=== PATIENT | male | born 1945 | race Caucasian/White ===

== ENCOUNTER 2024-01-17 16:23 | Inpatient (IN) | payer MEDICARE, OTHER, SELFPAY ==
[2024-01-17] VITALS (10 sets, daily range): BP systolic 84–130; BP diastolic 41–61; PULSE 55–79; BMI 30.3
--- NOTE | 2024-01-17 14:39 | ED.GENMED ---
History of Present Illness
General
Chief Complaint: Anal/Rectal Problem
Time Seen by Provider: 01/17/24 14:30
History of Present Illness
History of Present Illness:
Patient is a 78-year-old male with history of hypertension presenting to the emergency department with dark stools. Patient states that yesterday he was in his usual state of health. Had normal p.o. and no abdominal pain. He states that in the
evening around 7 PM he started to begin feeling unwell and dizzy. He laid down and when he stood up as his symptoms worsen. He then had his blood pressure checked and it was low in the 90s over 50s. He drank some orange juice had some more food
and rechecked it and the blood pressure was normal. He still did not feel well so he went to sleep. This morning he woke up and he had 3 episodes of black stools. this is never happened to him before. No abdominal pain travel antibiotics or
changes in his diet. Denies any history of reflux peptic ulcer disease. He is not on an aspirin and does not take any NSAIDs. He called his primary care doctor who advised him to come to the emergency department for further evaluation. He does
state that his blood pressure is better however he still feels slightly lightheaded and dizzy today.
He has never had an endoscopy but had a colonoscopy completed 2 years ago where a polyp was removed. He was due for another repeat colonoscopy 5 years later.
Past History
Past History
ED Past Medical History: HTN
ED Past Surgical History: Urological
Social History
Tobacco: Former smoker
Alcohol: Daily
Drug: None
Phy Exam
Physical Exam
Physical Exam:
GENERAL: in no acute distress
HEENT: normocephalic, extraocular movements intact, moist oral mucosa
NECK: normal inspection
RESPIRATORY: no respiratory distress, clear to auscultation bilaterally
CARDIOVASCULAR: regular rate and rhythm
ABDOMEN/: soft, non-distended, non-tender to palpation, no rebound or guarding
EXTREMITIES: non-tender, no edema/swelling
NEUROLOGIC: awake and alert, moves all extremities
SKIN: warm
Course
Orders/Labs/Results
Orders:
Orders
01/17/24 14:39
Orthostatic VS- Treatment ONCE
01/17/24 14:43
Pantoprazole [Protonix IV] 40 mg IV NOW STA
Pantoprazole [Protonix IV] 80 mg IV NOW STA
01/17/24 14:58
0.9% Sodium Chloride 1000 ml [Nss] 1,000 ml IV BOLUS
01/17/24 15:03
Type+Screen Urgent
Complete Blood Count/With Diff Urgent
Comprehensive Metabolic Panel Urgent
01/17/24 15:16
ABO2 Urgent
BBK Wristband Number:
Associate notified that ABO2 has been ordered: [id number]
Date: 01/17/24
Time: 15:17
Dry Cleaning Supervisor ID: [id number]
Abnormal Lab Results
01/17/24
15:03
RBC 3.62 L 10^6/uL
(4.70-6.10)
Hgb 11.2 L g/dL
(13.0-18.0)
Hct 30.0 L %
(39.0-52.0)
MCHC 37.3 H g/dL
(33.0-37.0)
MPV 11.1 H fL
(7.4-10.4)
BUN 67 H mg/dl
(9-20)
Glucose 104 H mg/dl
(70-99)
Alkaline Phosphatase 36 L U/L
(38-126)
01/17/24 15:03
01/17/24 15:03
Vital Signs
Initial and Last Documented VS:
Initial Vital Signs
Temp Pulse Resp BP Pulse Ox
98.6 F 76 18 115/61 99
01/17/24 14:11 01/17/24 14:11 01/17/24 14:11 01/17/24 14:11 01/17/24 14:11
Last Documented Vital Signs
Temp Pulse Resp BP Pulse Ox
98.6 F 76 18 115/61 99
01/17/24 14:11 01/17/24 14:11 01/17/24 14:11 01/17/24 14:11 01/17/24 14:11
MDM/Problems Addressed
Differential Diagnosis Includes:
Patient is a 78-year-old male with history of hypertension presenting to the emergency department with low blood pressure yesterday as well as black stools. Vitals here notable for blood pressure 115/61 and exam does show a benign abdomen.
Differential considered likely upper GI bleed either from peptic ulcer disease versus gastritis versus AVM. History and exam not consistent with variceal bleed or Boerhaave's. Will obtain blood work to evaluate hemoglobin as well as BUN. Will
complete orthostatic vital signs. Will give Protonix.
*Critical Care Note
Total Time (30-74mins, 75-104mins- exclusive of procedures): Not Applicable
Update Note
Update Note:
Orthostatics are positive. Will give a bolus of fluids.
Blood work is notable for hemoglobin of 11 with a baseline of 14-15 that was many years ago. BUN is elevated. Given the lightheadedness dizziness and ongoing dark tarry stools patient will benefit from admission. Discussed with hospitalist who
accepted patient to their service.
ED Attending Note
-
Portions of this chart may have been created with voice recognition software.� Occasional wrong word or��sound alike� substitutions may have occurred due to the inherent limitations of voice recognition software.
Discharge Plan
Departure
Patient Disposition: Admit
Date of Disposition: 01/17/24
Time of Disposition: 15:43
Presentation/result/management discussed w/ accepting MD/DO: Hospitalist
Discharge Problem:
Acute upper GI bleed
Prescriptions:
No Action
ropinirole 0.5 mg Tablet
0.5 mg PO HSPRN PRN (Reason: rls)
olmesartan-hydrochlorothiazide 40-12.5 mg Tablet
1 tab PO DAILY
Referrals:
Shahbaz Vazquez DO [Family Provider] -
Interventions
Interventions:
*Risk Screen - Suicide Last Done: 01/17/24 14:11
*General Assessment Last Done: 01/17/24 14:53
*Neglect/Abuse Screening Last Done: 01/17/24 14:11
*ED COVID-19 Vaccine History Last Done: 01/17/24 14:53
Discharge Date and Time
Print Language: ECUADOREAN
[2024-01-17] MEDS: PROTONIX IV 80 MG IV (15:10)
[2024-01-17] MEDS: NSS 1000 IV (15:11)
[2024-01-17 15:18] LABS: % Basophils 0.5 % (0-2); % Eosinophils 0.6 % (0-6); % Immature Granulocytes 0.2 % (0-0.5); % Lymphocytes 35.7 % (20.5-51.1); Absolute Lymphocytes 2.3 10^3/uL (1.2-3.4); Absolute Monocytes 0.4 10^3/uL (0.1-0.6); Absolute Neutrophils 3.7 10^3/uL (1.4-6.5); Hemoglobin 11.2 g/dL (13.0-18.0); Mean Corp Hgb Conc. 37.3 g/dL (33.0-37.0); Mean Corpuscular Hgb 30.9 pg (27.0-31.0); Mean Corpuscular Volume 82.9 fL (80.0-94.0); Mean Platelet Volume 11.1 fL (7.4-10.4); Nucleated Red Blood Cells % 0 % (-); Platelet Count 146 10^3/uL (130-400); Red Blood Cell Count 3.62 10^6/uL (4.70-6.10); Red Cell Dist. Width 12.9 % (11.5-14.5); White Blood Cell Count 6.5 10^3/uL (4.8-10.8)
[2024-01-17 15:33] LABS: ALT (SGPT) 19 U/L (0-50); AST (SGOT) 23 U/L (17-59); Albumin 4.2 g/dl (3.5-5.0); Alkaline Phosphatase 36 U/L (38-126); Blood Urea Nitrogen 67 mg/dl (9-20); Calcium 9.1 mg/dl (8.4-10.2); Carbon Dioxide 22 mmol/L (22-30); Chloride 107 mmol/L (98-107); Estimated Creatinine Clearance 77 ml/min; Glucose 104 mg/dl (70-99); Potassium 4.1 mmol/L (3.5-5.1); Sodium 139 mmol/L (135-145); Total Bilirubin 0.6 mg/dl (0.2-1.3); Total Protein 6.7 g/dl (6.3-8.2); eGFR > 60.00
--- NOTE | 2024-01-17 16:13 | HPS.HSE ---
Family Physician
-
Family Physician: Shahbaz Vazquez, DO
Chief Complaint
-
rectal bleeding
History of Present Illness
78-year-old male past medical history of hypertension, restless leg syndrome presenting with dark stools. He was in his normal state of health yesterday. In the evening around 7 PM yesterday began to feel unwell and dizzy. He laid down and when
he stood up his symptoms were worse. He has blood pressure checked and it was 90s over 50s. Some orange juice and had food and rechecked and blood pressure was normal. He went back to sleep. This morning he woke up and he had 3 episodes of black
stools. Denies any prior history of GI bleeding. He denies abdominal pain, history of acid reflux or peptic ulcer disease. Denies any aspirin use or taking any NSAIDs on a regular basis. He called his primary care physician who advised that he
come to the emergency room. He continues to feel lightheaded and dizzy.
He has never had an endoscopy before. He had colonoscopy 2 years ago and a polyp was removed.
He denies any family history of GI problems.
He drinks 3 drinks of alcohol per day. He denies smoking.
Medical History
Past Medical History
Past Medical History: Reports Other (hypertension, restless leg syndrome )
Past Surgical History: Reports None
Social History
Tobacco: Non-smoker
Alcohol: Daily
Drug: None
Family History
Family History: Not pertinent
Allergies / Home Medications
Allergies reflects when Allergies were last updated in [facility].
Home Medications with original date entered in [facility]
Allergy/Medication List:
Allergies
Allergy/AdvReac Type Severity Reaction Status Date / Time
seasonal pollen Allergy sneezing Uncoded 01/17/24 14:11
and watery
eyes
Home Medications
olmesartan 40 mg-hydrochlorothiazide 12.5 mg tablet 1 tab PO DAILY 01/17/24
ropinirole 0.5 mg tablet 0.5 mg PO HSPRN PRN rls 01/17/24
Review of Systems
-
History Source: Patient
A 12 point ROS was completed and negative except as noted: Yes
Constitutional: Reports No Symptoms
EENT: Reports No Symptoms
Respiratory: Reports No Symptoms
Cardiac: Reports No Symptoms
Abdomen/GI: Reports See HPI
: Reports No Symptoms
Musculoskeletal: Reports No Symptoms
Skin: Reports No Symptoms
Neurological: Reports No Symptoms
Endocrine: Reports No Symptoms
Hematologic/Lymphatic: Reports No Symptoms
Psych: Reports No Symptoms
Physical Exam
Vital Signs
Vital Signs
Temp Pulse Resp BP Pulse Ox
98.6 F 52 10 122/57 98
01/17/24 14:11 01/17/24 15:15 01/17/24 15:45 01/17/24 15:00 01/17/24 15:45
Physical Exam
General: Well Developed, Well Nourished and No Apparent Distress
HEENT: NormoCephalic, Moist mucous membranes and Atraumatic
Respiratory: Clear
Cardiac: S1/S2 and Regular Rhythm; No Murmur or Rub
GI: Soft, Non Tender, Non Distended and Normal Bowel Sounds; No Organomegaly
Rectal: Deferred by Provider
Musculoskeletal: No Clubbing, No Cyanosis and No Edema
Skin: No Rash
Neuro: Nonfocal/grossly intact
Laboratory Results
-
01/17/24 15:03
01/17/24 15:03
Laboratory Results
Total Bilirubin 0.6 mg/dl (0.2-1.3) 01/17/24 15:03
AST 23 U/L (17-59) 01/17/24 15:03
ALT 19 U/L (0-50) 01/17/24 15:03
Alkaline Phosphatase 36 U/L (38-126) L 01/17/24 15:03
Data Reviewed
-
Lab Data: Labs Reviewed by me
Old Records: Reviewed
Impression/Plan
-
IMPRESSION:
PLAN:
# Upper GI bleeding
-Hemoglobin 11.2
-Type and screen
-Clear liquid diet, n.p.o. past midnight
-Protonix 40 twice daily
-Check iron studies, B12 and folate
-GI consulted
Essential hypertension
-Hold olmesartan/hydrochlorothiazide
Restless leg syndrome
-Continue ropinirole
Daily alcohol use
-monitor for withdrawal
Full code
DVT prophylaxis SCDs
N.p.o. postmidnight
--- NOTE | 2024-01-17 18:31 | CON.GI ---
Consultation
-
Date/Time Consultation Requested: 01/17/2024, 1400
Date/Time Consultation Performed: 01/17/2024, 1830
Requesting Provider: Ady Raymond MD
Performing Provider: Dr. Pastor Barros
Reason for Consultation: UGIB
Medical History
Chief Complaint / HPI
Chief Complaint: Rectal bleeding
History of Present Illness:
Mr. Angeles is a 78 y.o male with past medical history of HTN and RLS who presented to the ED with dark stools.
Patient states he was in USOH until yesterday when he developed dizziness around 7 PM last evening. Noticed his BP was low 90/50s and tried drinking orange juice. The next morning we subsequently developed three episodes of dark black liquid stools.
No blood clots or BRBPR. Denies any prior hx of GI bleeding in the past. No blood thinners, antiplatelets or ASA. Does note prior NSAIDs about a week ago but only one or two tablets one time, no significant NSAID use. Denies any unintentional weight
loss. No other nausea/vomiting, reflux/heartburn, dysphagia/odynophagia, dyspepsia or epigastric pain. No other significant EtOH use. Called his PCP who advised him to come to the ED given his dark stools and lightheadedness.
Prior Endoscopic Hx:
Colonoscopy (high risk CRC surveillance, hx of colon polyps) 04/28/2022- Impression: Diverticulosis in simgoid colon. One 1 mm polyp in the recto-sigmoid colon, removed via cold biopsy forceps. Examination was otherwise normal.
No prior EGD
In the ED, patient was afebrile and HD-stable. Labs notable for BUN 67 and Equipment Maint Tech 1.0. LFTs wnl. CBC with Hgb 11.2 (previously baseline 14-15s) and plts 146. Patient was admitted to medicine for further management and started on IV PPI 40 mg BiD. GI
has been consulted for further evaluation and management due to concern for UGIB.
Past Medical History
Past Medical History: Other (hypertension, restless leg syndrome)
Past Surgical History: None
Social History
Tobacco: Non-Smoker
Alcohol: Occasional
Drug: None
Family History
Family History: Reviewed & Not Pertinent
Allergies / Home Medications
Allergy/AdvReac Type Severity Reaction Status Date / Time
pollen extracts Allergy sneezing Verified 01/17/24 18:09
and watery
eyes
�Medication �Instructions �Recorded
olmesartan 40 1 tab PO DAILY 01/17/24
mg-hydrochlorothiazide 12.5 mg
tablet
ropinirole 0.5 mg tablet 0.5 mg PO HSPRN PRN rls 01/17/24
Review of Systems
-
All other systems: A 12 pt ROS was Negative except as stated above in HPI
Vital Signs
Temp Pulse Resp BP Pulse Ox
98.6 F 52 14 126/58 100
01/17/24 14:11 01/17/24 18:00 01/17/24 18:00 01/17/24 17:00 01/17/24 17:45
Physical Exam
Exam
General: Well Developed, Well Nourished and Comfortable
HEENT: Normocephalic and Anicteric
Respiratory: Clear and Non Labored Respirations
Cardiac: S1/S2
GI: Soft, Non Tender and Non Distended
Skin: Warm
Neuro: AO x 3
Psych: Calm
Results
WBC 6.5 10^3/uL (4.8-10.8) 01/17/24 15:03
Hgb 11.2 g/dL (13.0-18.0) L 01/17/24 15:03
Hct 30.0 % (39.0-52.0) L 01/17/24 15:03
MCV 82.9 fL (80.0-94.0) 01/17/24 15:03
Plt Count 146 10^3/uL (130-400) 01/17/24 15:03
Absolute Neuts (auto) 3.7 10^3/uL (1.4-6.5) 01/17/24 15:
Sodium 139 mmol/L (135-145) 01/17/24 15:
Potassium 4.1 mmol/L (3.5-5.1) 01/17/24 15:
Chloride 107 mmol/L (98-107) 01/17/24:
Carbon Dioxide 22 mmol/L (22-30) 01/17/24 15:
BUN 67 mg/dl (9-20) H 01/17/24 15:
Creatinine 1.0 mg/dL (0.7-1.3) 01/17/24:
Calcium 9.1 mg/dl (8.4-10.2) 01/17/24 15:
Total Bilirubin 0.6 mg/dl (0.2-1.3) 01/17/24:
AST 23 U/L (17-59) 01/17/24 15:
ALT 19 U/L (0-50) 01/17/24 15:
Alkaline Phosphatase 36 U/L (38-126) L 01/17/24 15:
Diagnostic Image Results: As above
Assessment / Plan
-
#Melena #UGIB
#Acute Blood Loss Anemia
#Symptomatic Anemia
Assessment: Mr. Angeles is a pleasant 78 y.o male with past medical history of HTN and RLS who presented to the ED with melena and symptomatic anemia found to have orthostatic hypotension and Hgb 11s (from 14-15s). BUN 67 with nml Equipment Maint Tech 1.0.
Etiology concerning for non-variceal UGIB secondary to PUD vs Dieulafoy's lesion vs gastroduodenal erosions versus malignancy. No concern for LGIB. Although orthostatic, he is HD-stable without any further episodes of melena since admission. Would
benefit from EGD for further evaluation.
Recommendations:
- Okay for CLD, keep NPO at MN
- IV PPI 40 mg BiD
- Trend Hgb with serial CBC, transfuse for goal Hgb > 7.0
- Check INR with AM labs
- Plan for EGD tomorrow, 01/18/24, for further evaluation of melena
- Avoid all anti-hypertensive and anticoagulants
- Rest of care per primary team
GI will continue to follow.
Data Reviewed
-
Old Records: Reviewed
-
-
Thank you for consultation and allowing me to participate in the patient's care. Please call the divisional storekeeper GI physician during the after hours with any questions or concerns.
[2024-01-17] MEDS: NSS (PRESERVATIVE FREE) 10 ML IV (19:43)
[2024-01-17] MEDS: PROTONIX IV 40 MG IV (19:43)
[2024-01-17 20:19] LABS: Iron 166 ug/dl (49-181)
[2024-01-17 20:28] LABS: Percent Saturation 66 % (20-50); Total Iron Binding Capacity 249 ug/dl (261-462)
[2024-01-17 21:19] LABS: Vitamin B12 393 pg/ml (239-931)
[2024-01-18] VITALS (9 sets, daily range): BP systolic 11–127; BP diastolic 45–55
[2024-01-18] MEDS: PROTONIX IV 40 MG IV (08:07)
[2024-01-18] MEDS: NSS (PRESERVATIVE FREE) 10 ML IV (08:08)
[2024-01-18 08:38] LABS: INR 1.19; PT 14.9 Sec (11.4-14.6)
[2024-01-18 08:57] LABS: % Basophils 0.8 % (0-2); % Eosinophils 3.8 % (0-6); % Immature Granulocytes 0.2 % (0-0.5); % Lymphocytes 49.6 % (20.5-51.1); % Monocytes 8.3 % (1.7-9.3); % Neutrophils 37.3 % (42.2-75.2); Absolute Eosinophils 0.2 10^3/uL (0-0.7); Absolute Lymphocytes 2.4 10^3/uL (1.2-3.4); Absolute Monocytes 0.4 10^3/uL (0.1-0.6); Absolute Neutrophils 1.8 10^3/uL (1.4-6.5); Hematocrit 28.8 % (39.0-52.0); Hemoglobin 10.3 g/dL (13.0-18.0); Mean Corp Hgb Conc. 35.8 g/dL (33.0-37.0); Mean Corpuscular Hgb 31.6 pg (27.0-31.0); Mean Corpuscular Volume 88.3 fL (80.0-94.0); Mean Platelet Volume 11.6 fL (7.4-10.4); Nucleated Red Blood Cells % 0 % (-); Platelet Count 128 10^3/uL (130-400); Red Blood Cell Count 3.26 10^6/uL (4.70-6.10); White Blood Cell Count 4.8 10^3/uL (4.8-10.8)
[2024-01-18 09:09] LABS: ALT (SGPT) 18 U/L (0-50); AST (SGOT) 22 U/L (17-59); Albumin 3.5 g/dl (3.5-5.0); Alkaline Phosphatase 30 U/L (38-126); Blood Urea Nitrogen 41 mg/dl (9-20); Calcium 8.5 mg/dl (8.4-10.2); Carbon Dioxide 25 mmol/L (22-30); Chloride 107 mmol/L (98-107); Estimated Creatinine Clearance 77 ml/min; Glucose 92 mg/dl (70-99); Potassium 4.3 mmol/L (3.5-5.1); Sodium 141 mmol/L (135-145); Total Bilirubin 0.6 mg/dl (0.2-1.3); Total Protein 5.9 g/dl (6.3-8.2); eGFR > 60.00
--- NOTE | 2024-01-18 11:48 | W.PN.HOSP.TC ---
Addendum entered and electronically signed by Qamar Pereyra MD 01/18/24 14:46:
Upper GI bleed with acute blood loss anemia, did not require blood transfusion, secondary to PUD which was likely alcohol induced.
-BID IV PPI to BID PO 40mg PPI [id number] per GI
-Repeat Egd in 8weeks
-Avoid NSAID's and citric acid contianing foods, alcohol
-GI follow up for Bx review
-Asymptomatic now, previously dizzy this AM
-Repeat CBC with PCP in 3days
-Transfuse if hgb <7
-If able to tolerate diet and is DC'ed today, return precautions provided at bedside
Alcohol use disorder
-Thiamine and folate
-Avoid/abstain from alcohol use
-Without evidence of withdrawl
More than 30 minutes spent in discharge including
Final examination of the patient
Summarizing hospital stay
Instructions for continuing care to all relevant caregivers
Preparation of discharge records, prescriptions, and referral forms
Total time spent (in minutes): 35mins
Original Note:
Today's Communication/Plan
-
* Continue IV pantoprazole.
* Resume diet.
* Anticipated discharge today.
Assessment / Plan
Assessment / Plan
Assessment
Mohinder Angeles, age 78, felt dizzy and weak 2 days ago in the evening and woke up with 3 episodes of black stools on 01-17-24. Came to the hospital and admitted for presumed upper GI bleeding.
Impression and plan
Acute upper gastrointestinal bleeding
Duodenal and esophageal ulcer
Chronic gastritis, possibly associated with alcohol use
Melena
- Possibly related to daily alcohol use (3+ drinks).
- Continue IV pantoprazole BID.
- Endoscopy shows esophageal and duodenal ulcers; no active foci of bleeding.
- Erythematous mucus from stomach biopsied.
- Resume diet.
- Repeat CBC stable; patient asymptomatic.
Acute blood loss anemia
- Likely from the GI bleed.
- Follow CBC.
- Transfuse for <7 hemoglobin.
Essential hypertension
- Hold olmesartan-hydrochlorothiazide
Restless leg syndrome
- Continue ropinirole.
Heavy alcohol use
- Monitor; not withdrawing.
- Strongly emphasized abstaining for now.
Thromboprophylaxis
- SCD.
Code status
- Full.
Anticipated Discharge: 24 - 48 hours
Subjective/Interval History
-
Date of Service: January 18, 2024
Stable overnight. Has been NPO and has not had a bowel movement since admitted. No pain.
Objective Data
-
Labs:
Laboratory Results
01/18/24
06:44
WBC 4.8
Hgb 10.3 L
Hct 28.8 L
Plt Count 128 L
PT 14.9 H
INR 1.19
Sodium 141
Potassium 4.3
Chloride 107
Carbon Dioxide 25
BUN 41 H
Creatinine 1.0
Glucose 92
Calcium 8.5
Total Bilirubin 0.6
AST 22
ALT 18
Alkaline Phosphatase 30 L
Vital Signs:
Vital Signs
Temp Pulse Resp BP Pulse Ox
97.9 F 61 14 123/52 98
01/18/24 11:30 01/18/24 11:30 01/18/24 11:30 01/18/24 11:30 01/18/24 11:30
I&O
01/17/24 01/18/24 01/19/24
06:59 06:59 06:59
Intake Total 480 / 480
Balance 480 / 480
Review of Systems
-
History Source: Patient
Constitutional: Reports No Symptoms
EENT: Reports No Symptoms Reported
Respiratory: Reports No Symptoms
Cardiac: Reports No Symptoms
Abdomen/GI: Reports Black Stools
Genitourinary: Reports No Symptoms
Musculoskeletal: Reports No Symptoms
Skin: Reports No Symptoms
Neuro: Reports No Symptoms
Endocrine: Reports No Symptoms
Allergy / Immunology: Reports No Symptoms
Physical Exam
-
General: No Apparent Distress and Comfortable
HEENT: Normocephalic, Atraumatic, Moist Mucous Membranes, Anicteric and No Ptosis
Respiratory: Clear to Auscultation and Non Labored Respirations
Cardiac: Regular Rhythm and S1/S2
GI: Soft, Nontender, Nondistended, Normal Bowel Sounds and No Hepatosplenomegaly
Genito-urinary: No Costovertebral Tender
Musculoskeletal: No Clubbing, No Cyanosis and No Edema
Skin: Warm, Dry and IV Access / Catheter Site
Neuro: Awake, Alert, Oriented and No Motor Deficits
Hematologic / Lymphatic: No Lymphadenopathy
Psych: Calm
--- NOTE | 2024-01-18 12:23 | CM ---
Pt seen bedside. Pt lives w/ spouse in a [facility]- 2/3 steps to enter
Independent, no DME use for daily functioning
Denies SNF hx
Denies VN/PT hx
Denies financial insecurities
Address, point of contact and insurances verified
PCP: Dr. Shahbaz Vazquez
Pharmacy: [facility] [place]
Pt states he drove himself here and will drive home at d/c
Plan: Home no needs anticipated
--- NOTE | 2024-01-18 13:36 | W.DCSUMMARY ---
Discharge Summary
Discharge Data
Date of Admission: 01/17/24
Date of Discharge: 01/18/24
-
Pending Results: Yes (gastric biopsy results)
Hospital Course
Primary discharge diagnoses
* Acute upper gastrointestinal bleeding
* Acute blood loss anemia
Secondary discharge diagnoses
- Duodenal and esophageal ulcer
- Chronic gastritis, possibly associated with alcohol use
- Gastroesophageal reflux disease
- Gastric diverticulum
- Essential hypertension
- Restless leg syndrome
- Heavy alcohol use
Hospital course
Mohinder Angeles, age 78, had 3 episodes of black stools on 01-17-24 and came to the hospital. Blood work was notable for a low hemoglobin (compared to 2019) and elevated blood urea nitrogen; he was started on treatment for suspected acute upper
gastrointestinal bleeding. He was given intravenous pantoprazole twice a day and underwent an upper gastrointestinal endoscopy on 01-18-24. The endoscopy showed esophageal and duodenal ulcerations, as well as erythematous gastric mucosa which was
biopsied for further evaluation. No active bleeding or oozing spots were identified. Patient remained asymptomatic and hemodynamically stable with normal vital signs throughout his admission. He tolerated food well after the endoscopy, and has not
had any gastrointestinal symptoms during the admission. He was evaluated by gastroenterology, who recommended outpatient follow-up and a repeat endoscopy in about 8 weeks to re-evaluate ulcers. He will be discharged home on 8 weeks of pantoprazole
40 mg twice a day, then once daily. Strongly recommended to abstain from alcohol and/or nonsteroidal anti-inflammatory drugs use. Please consult primary before taking any other/new medications/supplements. Follow-up with primary within 1 week and
gastroenterology in 2-3 weeks. Please check blood work in 3 days; physical script provided.
Discharge Plan
-
Patient Disposition: Home (Routine Discharge)
Discharge Diagnosis/Procedures: Acute upper gastrointestinal bleeding
Duodenal and esophageal ulcer
Chronic gastritis, possibly associated with alcohol use
Condition: Good
Diet: Regular
Activity: No restrictions
Driving Restrictions: As prior to admission
Bathing Restrictions: None
Blood Work: CBC and BMP in 3 days.
Others Tests: Repeat endoscopy in 8 weeks.
Instructions: Gastrointestinal Bleeding (DC)
Referrals:
Shahbaz Vazquez DO [Family Provider] - in less than 1 week
Pastor Barros DO [Active] - in two to three weeks
Prescriptions:
New
pantoprazole 40 mg tablet,delayed release (DR/EC)
40 mg PO DAILY 56 Days Qty: 56 2RF
Continued
ropinirole 0.5 mg Tablet
0.5 mg PO HSPRN PRN (Reason: rls)
olmesartan-hydrochlorothiazide 40-12.5 mg Tablet
1 tab PO DAILY
Discharge Date and Time
Print Language: [place]OOK ISLAND[place]
== END 2024-01-18 16:28 | disposition home or self-care (01) | DRG 378 ==
LOC: 4 WEST ACU 16:23
PROVIDERS: Student in an Organized Health Care Education/Training Program; ADMITTING PHYSICIAN Hospitalist; ATTENDING PHYSICIAN Hospitalist; CONSULT PHYSICIAN Student in an Organized Health Care Education/Training Program; EMERGENCY PHYSICIAN Student in an Organized Health Care Education/Training Program; FAMILY PHYSICIAN Family Medicine
PROC: 0DB38ZX Excision of Lower Esophagus, Via Natural or Artificial Opening Endoscopic, Diagnostic (ICD-10-PCS; 2024-01-18)
PROC: 0DB48ZX Excision of Esophagogastric Junction, Via Natural or Artificial Opening Endoscopic, Diagnostic (ICD-10-PCS; 2024-01-18)
PROC: 0DB78ZX Excision of Stomach, Pylorus, Via Natural or Artificial Opening Endoscopic, Diagnostic (ICD-10-PCS; 2024-01-18)
DX: K26.4 Chronic or unspecified duodenal ulcer with hemorrhage (principal); D62 Acute posthemorrhagic anemia; K22.10 Ulcer of esophagus without bleeding; G25.81 Restless legs syndrome; I10 Essential (primary) hypertension; K29.50 Unspecified chronic gastritis without bleeding; K21.9 Gastro-esophageal reflux disease without esophagitis; K31.4 Gastric diverticulum; K44.9 Diaphragmatic hernia without obstruction or gangrene; K31.89 Other diseases of stomach and duodenum; I95.1 Orthostatic hypotension; Z79.899 Other long term (current) drug therapy; Z86.0100 Personal history of colon polyps, unspecified; Z87.891 Personal history of nicotine dependence
CPT/HCPCS: 88305; 80053; 82607; 82728; 83540; 83550; 85025; 85610; 86850; 86900; 86901; 88342; 96361; 96374; 99285

== ENCOUNTER → 2024-01-21 09:27 | Outpatient (REF) | payer MEDICARE, OTHER, SELFPAY ==
[2024-01-21 10:32] LABS: % Basophils 0.7 % (0-2); % Eosinophils 3.5 % (0-6); % Lymphocytes 39.7 % (20.5-51.1); % Monocytes 7.9 % (1.7-9.3); % Neutrophils 48.2 % (42.2-75.2); Absolute Eosinophils 0.2 10^3/uL (0-0.7); Absolute Lymphocytes 1.8 10^3/uL (1.2-3.4); Absolute Monocytes 0.4 10^3/uL (0.1-0.6); Absolute Neutrophils 2.2 10^3/uL (1.4-6.5); Hematocrit 29.4 % (39.0-52.0); Hemoglobin 10.7 g/dL (13.0-18.0); Mean Corp Hgb Conc. 36.4 g/dL (33.0-37.0); Mean Corpuscular Hgb 32.2 pg (27.0-31.0); Mean Corpuscular Volume 88.6 fL (80.0-94.0); Mean Platelet Volume 11.5 fL (7.4-10.4); Nucleated Red Blood Cells % 0 % (-); Platelet Count 143 10^3/uL (130-400); Red Blood Cell Count 3.32 10^6/uL (4.70-6.10); Red Cell Dist. Width 12.9 % (11.5-14.5); White Blood Cell Count 4.5 10^3/uL (4.8-10.8)
[2024-01-21 11:07] LABS: Blood Urea Nitrogen 25 mg/dl (9-20); Calcium 8.6 mg/dl (8.4-10.2); Carbon Dioxide 25 mmol/L (22-30); Chloride 104 mmol/L (98-107); Glucose 104 mg/dl (70-99); Potassium 4.1 mmol/L (3.5-5.1); Sodium 138 mmol/L (135-145); eGFR > 60.00
== END ==
LOC: REG 09:27
PROVIDERS: ATTENDING PHYSICIAN Student in an Organized Health Care Education/Training Program; FAMILY PHYSICIAN Family Medicine; REFERRING PHYSICIAN Student in an Organized Health Care Education/Training Program
DX: K92.2 Gastrointestinal hemorrhage, unspecified (principal); D62 Acute posthemorrhagic anemia
CPT/HCPCS: 36415; 80048; 85025

== ENCOUNTER → 2024-03-23 11:41 | Outpatient (REF) | payer MEDICARE, OTHER, SELFPAY ==
[2024-03-23 12:34] LABS: % Basophils 0.8 % (0-2); % Immature Granulocytes 0.2 % (0-0.5); % Monocytes 9.6 % (1.7-9.3); % Neutrophils 51.4 % (42.2-75.2); Absolute Eosinophils 0.1 10^3/uL (0-0.7); Absolute Lymphocytes 1.7 10^3/uL (1.2-3.4); Absolute Monocytes 0.5 10^3/uL (0.1-0.6); Absolute Neutrophils 2.4 10^3/uL (1.4-6.5); Hematocrit 38.5 % (39.0-52.0); Hemoglobin 13.5 g/dL (13.0-18.0); Mean Corp Hgb Conc. 35.1 g/dL (33.0-37.0); Mean Corpuscular Hgb 30.7 pg (27.0-31.0); Mean Corpuscular Volume 87.5 fL (80.0-94.0); Mean Platelet Volume 10.8 fL (7.4-10.4); Nucleated Red Blood Cells % 0 % (-); Platelet Count 164 10^3/uL (130-400); Red Cell Dist. Width 11.8 % (11.5-14.5); White Blood Cell Count 4.7 10^3/uL (4.8-10.8)
[2024-03-23 13:12] LABS: Iron 104 ug/dl (49-181)
[2024-03-23 13:21] LABS: Percent Saturation 38 % (20-50); Total Iron Binding Capacity 270 ug/dl (261-462)
[2024-03-23 13:30] LABS: Vitamin D, 25-OH*** 45.4 ng/mL (30-80)
[2024-03-23 13:48] LABS: Ferritin 64.9 ng/ml (17.9-464.0)
== END ==
LOC: REG 11:41
PROVIDERS: ATTENDING PHYSICIAN Physician Assistant; FAMILY PHYSICIAN Family Medicine; REFERRING PHYSICIAN Student in an Organized Health Care Education/Training Program
DX: D62 Acute posthemorrhagic anemia (principal); E55.9 Vitamin D deficiency, unspecified
CPT/HCPCS: 36415; 82306; 82728; 83540; 83550; 85025

== ENCOUNTER 2024-04-06 06:18 | Day surgery (SDC) | payer MEDICARE, OTHER, SELFPAY | END 2024-04-06 10:49 | disposition home or self-care (01) | LOC: GI 06:18 | PROVIDERS: ATTENDING PHYSICIAN Student in an Organized Health Care Education/Training Program; FAMILY PHYSICIAN Family Medicine | DX: K22.89 Other specified disease of esophagus (principal); K31.4 Gastric diverticulum; K26.9 Duodenal ulcer, unspecified as acute or chronic, without hemorrhage or perforation; K22.70 Barrett's esophagus without dysplasia | CPT/HCPCS: 43239; 88305 ==

== ENCOUNTER 2024-07-22 12:07 | Emergency (ER) | payer MEDICARE, OTHER, SELFPAY ==
[2024-07-22 12:13] VITALS: BP 160/78
--- NOTE | 2024-07-22 13:00 | ED.SKININJ ---
HPI-Injury
General
Chief Complaint: Bite
Source: patient
Exam Limitations: none
Time Seen by Provider: 07/22/24 12:39
Nursing documentation reviewed up to this point in time: agreed with
History of Present Illness-Injury
Initial Injury comments:
78-year-old male with history as noted presents for evaluation after dog bite. Patient was walking outside today and passed by a neighbor who was walking the dog. The dog left up and bit him on left hand when he greeted the neighbor. Sustained
some puncture wounds to the left hand. Unsure of his last tetanus. Dog is reportedly up-to-date on vaccinations. No other injuries or complaints.
Past History
Past History
ED Past Medical History: HTN
ED Past Surgical History: Urological
Social History
Tobacco: Former smoker
Alcohol: Daily
Drug: None
Review of Systems
Review of Systems
All Other Systems: ROS reviewed and negative except as documented in HPI and ROS
Skin: Reports other (Dog bite)
Phy Exam
Physical Exam
Physical Exam:
General: Well appearing and non-toxic
HEENT: protecting airway
Neck: appears supple
CV: No evidence of cyanosis
Resp: No accessory muscle use
Abd: Non-distended
Extremities: No deformities
Neuro: Alert
Psych: Normal affect
Skin: Patient has 4 small wounds on the dorsum of the left hand�he has 1 approximately 2 cm linear superficial laceration on the dorsum at the base of the thumb, 2 punctate puncture wounds over the second MTP joint and then 1 small puncture wound
over the radial aspect of the left wrist
Course
Orders/Labs/Results
Orders:
Orders
07/22/24 12:58
Amoxicillin 875 mg/Clav 125 mg [Augmentin 875 mg/125 mg] 1 tablet PO NOW STA
Tetanus/Diphth/Acelpertussis [Adacel] 0.5 ml IM .ONCE ONE
Vital Signs
Initial and Last Documented VS:
Initial Vital Signs
Temp Pulse Resp BP Pulse Ox
36.7 C 57 16 160/78 98
07/22/24 12:13 07/22/24 12:13 07/22/24 12:13 07/22/24 12:13 07/22/24 12:13
Last Documented Vital Signs
Temp Pulse Resp BP Pulse Ox
36.7 C 57 16 160/78 98
07/22/24 12:13 07/22/24 12:13 07/22/24 12:13 07/22/24 12:13 07/22/24 12:13
MDM/Problems Addressed
Differential Diagnosis Includes:
Dog bite
MDM/Problems Addressed:
78 old male presents with dog bite to the left hand. Will update patient's tetanus as he is unsure of his last tetanus. Dog is up-to-date on vaccinations, no indication for rabies prophylaxis. Will start on Augmentin for infectious prophylaxis.
Wound was vigorously irrigated and scrubbed with Betadine sponge. 1 larger laceration which was approximately 2 cm was approximated loosely with Steri-Strips but I explained to the patient that we would hold on sutures given high risk for
infection. Clean dressing applied. Stable for discharge. Spoke about return precautions and wound care. All questions answered.
Acute Exacerbation and/or Progression of Chronic Illness:
Acutely hypertensive
Acute Exacerbation and/or Progression of Chronic Illness: HTN
*Pulse Oximetry
Patient hypoxic: no
*Critical Care Note
Total Time (30-74mins, 75-104mins- exclusive of procedures): Not Applicable
Data Reviewed
Source: patient
ED Attending Note
-
Portions of this chart may have been created with voice recognition software.� Occasional wrong word or��sound alike� substitutions may have occurred due to the inherent limitations of voice recognition software.
Discharge Plan
Departure
Patient Disposition: Home (Routine Discharge)
Date of Disposition: 07/22/24
Time of Disposition: 12:59
Patient with high blood pressure during this ER visit?: Yes
Discharge Problem:
Dog bite
Instructions: Animal Bites (DC)
Prescriptions:
New
amoxicillin-pot clavulanate 875-125 mg tablet
1 tab PO BID Qty: 14 0RF
No Action
ropinirole 0.5 mg Tablet
0.5 mg PO HSPRN PRN (Reason: rls)
olmesartan-hydrochlorothiazide 40-12.5 mg Tablet
1 tab PO DAILY
pantoprazole 40 mg tablet,delayed release (DR/EC)
40 mg PO DAILY 56 Days Qty: 56 2RF
Activity Restrictions/Additional Instructions:
If you notice any signs of infection including redness, drainage, increased pain or swelling please return to the emergency room to be evaluated.
Interventions
Interventions:
*Risk Screen - Suicide Last Done: 07/22/24 12:13
*General Assessment Last Done: 07/22/24 12:27
*Neglect/Abuse Screening Last Done: 07/22/24 12:13
*ED- Fall Risk Assessment Last Done: 07/22/24 12:27
*ED COVID-19 Vaccine History Last Done: 07/22/24 12:27
ED-Skin Assessment Last Done: 07/22/24 12:27
Discharge Date and Time
Print Language: BELARUSIAN
[2024-07-22] MEDS: AUGMENTIN 875 MG/125 MG 1 TABLET PO (13:04)
[2024-07-22] MEDS: ADACEL 0.5 ML IM (13:04)
[2024-07-22 13:42] VITALS: BP 157/78
== END 2024-07-22 13:43 | disposition home or self-care (01) ==
LOC: EMR 12:07
PROVIDERS: EMERGENCY PHYSICIAN Emergency Medicine; FAMILY PHYSICIAN Family Medicine
DX: S61.412A Laceration without foreign body of left hand, initial encounter (principal); W54.0XXA Bitten by dog, initial encounter; I10 Essential (primary) hypertension; Z87.891 Personal history of nicotine dependence; Z23 Encounter for immunization
CPT/HCPCS: 90471; 99282; 90715

== ENCOUNTER → 2024-11-15 11:49 | Outpatient (REF) | payer MEDICARE, OTHER, SELFPAY | LOC: RAD 11:49 | PROVIDERS: ATTENDING PHYSICIAN Family Medicine; REFERRING PHYSICIAN Specialist | DX: M25.561 Pain in right knee (principal) | CPT/HCPCS: 73565 ==

== ENCOUNTER → 2025-01-04 11:33 | Outpatient (REF) | payer MEDICARE, OTHER, SELFPAY ==
[2025-01-04 12:57] LABS: Hematocrit 41.1 % (39.0-52.0); Hemoglobin 14.4 g/dL (13.0-18.0); Mean Corp Hgb Conc. 35.0 g/dL (33.0-37.0); Mean Corpuscular Volume 86.9 fL (80.0-94.0); Nucleated Red Blood Cells % 0 % (-); Platelet Count 169 10^3/uL (130-400); Red Cell Dist. Width 12.8 % (11.5-14.5)
[2025-01-04 13:01] LABS: Blood Urea Nitrogen 21 mg/dl (9-20); Calcium 9.0 mg/dl (8.4-10.2); Carbon Dioxide 28 mmol/L (22-30); Chloride 105 mmol/L (98-107); Glucose 97 mg/dl (70-99); Potassium 4.4 mmol/L (3.5-5.1); Sodium 139 mmol/L (135-145); eGFR > 60.00
== END ==
LOC: RCS 11:33
PROVIDERS: ATTENDING PHYSICIAN Specialist; FAMILY PHYSICIAN Family Medicine
DX: Z01.818 Encounter for other preprocedural examination (principal)
CPT/HCPCS: 36415; 80048; 85025; 93005